=== PATIENT | female | born 1995 | race Asian ===

== ENCOUNTER 2021-08-07 21:09 | Emergency (ER) | payer SELFPAY ==
[2021-08-07] MEDS ORDERED: DIAZEPAM 10 MG/2 ML INJ SYRINGE ONE (22:00)
[2021-08-07] MEDS ORDERED: ONDANSETRON 4 MG/2 ML VIAL ONE (22:00)
[2021-08-07 22:07] LABS: Absolute Lymphocytes (CBC) 3.6 K/uL (0.7-4.9); Hematocrit 36.1 % (36.0-45.0); Lymphocytes % 23.3 % (15.3-44.8); MPV 8.1 fL (7.6-11.3); RBC Red Blood Cell Count 4.86 M/uL (3.86-4.86)
[2021-08-07 22:26] LABS: Potassium 3.7 mmol/L (3.5-5.1); Troponin High Sensitivity 3.4 pg/mL (<58.9)
[2021-08-07 22:42] LABS: Urine Blood Negative (Negative); Urine Glucose Negative (Negative); Urine Protein Negative (Negative); Urine Specific Gravity 1.015 (1.005-1.030); Urine pH 5.5 (5.0-7.0)
[2021-08-07 22:59] LABS: Urine Specific Gravity/Preg 1.015 (1.005-1.030)
--- NOTE | 2021-08-07 23:27 | RAD REPORT ---
EXAM DESCRIPTION: CT - Head Brain Wo Cont - 08/07/2021 11:20 pm CLINICAL HISTORY: Dizziness COMPARISON: <Comparisons> TECHNIQUE: All CT scans are performed using dose optimization technique as appropriate and may inclu de automated exposure control or mA/KV adjustment according to patient size. FINDINGS: No intracranial hemorrhage, hydrocephalus or extra-axial fluid collection.No areas of brai n edema or evidence of midline shift. The paranasal sinuses and mastoids are clear. The calvarium is intact. IMPRESSION: No acute intracranial abnormality.
--- NOTE | 2021-08-08 00:30 | ER ---
Nurse's Notes [facility] Name: Talib Covarrubias Age: 26 yrs Sex: Female : 1995 Arrival Date: 08/07/2021 Time: 21:14 Bed 15 Private MD: Diagnosis: Vertigo Presentation: 08/07 21:26 Chief complaint: Parent and/or Guardian states: "She has been having dizzy and about tw5 two or three times she felt like she was going to fall down from the dizziness.". Coronavirus screen: Vaccine status: Patient reports receiving the 2nd dose of the covid vaccine. [employer]. Ebola Screen: Patient negative for fever greater than or equal to 101.5 degrees Fahrenheit, and additional compatible Ebola Virus Disease symptoms Patient denies exposure to infectious person. Patient denies travel to an Ebola-affected area in the 21 days before illness onset. Initial Sepsis Screen: Does the patient meet any 2 criteria? No. Patient's initial sepsis screen is negative. Does the patient have a suspected source of infection? No. Patient's initial sepsis screen is negative. Risk Assessment: Do you want to hurt yourself or someone else? Patient reports no desire to harm self or others. Onset of symptoms was August 06, 2021. 21:26 Method Of Arrival: Ambulatory tw5 21:26 Acuity: LUIS MANUEL 3 tw5 Triage Assessment: 21:27 General: Appears in no apparent distress. Behavior is calm, cooperative, appropriate tw5 for age. Pain: Complains of pain in abdomen Pain currently is 8 out of 10 on a pain scale. 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 - Social history:: Smoking status: Patient denies any tobacco usage or history of. Screenin:35 Abuse screen: Denies threats or abuse. Nutritional screening: No deficits noted. ll3 Tuberculosis screening: No symptoms or risk factors identified. Fall Risk No fall in past 12 months (0 pts). No secondary diagnosis (0 pts). IV access (20 points). Ambulatory Aid- None/Bed Rest/Nurse Assist (0 pts). Gait- Normal/Bed Rest/Wheelchair (0 pts) Mental Status- Oriented to own ability (0 pts). Total Curry Fall Scale indicates No Risk (0-24 pts). Assessment: 21:30 General: Appears uncomfortable, Behavior is calm, cooperative. Pain: Complains of pain ll3 in abdomen Pain currently is 8 out of 10 on a pain scale. Neuro: Level of Consciousness is awake, alert, obeys commands, Oriented to person, place, time, situation. GI: Abdomen is round non-distended, Reports lower abdominal pain, upper abdominal pain. Derm: Skin is pink, warm \\T\\ dry. 23:00 Reassessment: No changes from previously documented assessment. Patient and/or family ll3 updated on plan of care and expected duration. Pain level reassessed. Patient is alert, oriented x 3, equal unlabored respirations, skin warm/dry/pink. 08/08 00:55 Reassessment: No changes from previously documented assessment. Patient and/or family ll3 updated on plan of care and expected duration. Pain level reassessed. Patient is alert, oriented x 3, equal unlabored respirations, skin warm/dry/pink. Vital Signs: 08/07 21:24 BP 118 / 88; Pulse 99; Resp 18; Temp 98.7; Pulse Ox 100% on R/A; Weight 75 kg; Height 5 tw5 ft. 0 in. (152.40 cm); Pain 8/10; 23:35 BP 116 / 77; Pulse 91; Resp 20; Pulse Ox 100% on R/A; ll3 18 00:55 BP 110 / 97; Pulse 93; Resp 20; Pulse Ox 100% on R/A; ll3 08/07 21:24 Body Mass Index 32.29 (75.00 kg, 152.40 cm) tw5 ED Course: 08/07 21:14 Patient arrived in ED. as 21:19 Richard Infante PA is PHCP. jmm 21:19 Theodore Jenkins MD is Attending Physician. jmm 21:24 Arm band placed on. tw5 21:27 Triage completed. tw5 21:43 Hanane Gold, LACEY is Primary Nurse. ll3 21:58 Inserted saline lock: 20 gauge in left antecubital area, using aseptic technique. Blood bh1 collected. 23:22 CT Head Brain wo Cont In Process Unspecified. EDMS 23:35 Patient has correct armband on for positive identification. Bed in low position. Call ll3 light in reach. Side rails up X 1. 08/08 00:56 No provider procedures requiring assistance completed. IV discontinued, intact, ll3 bleeding controlled, No redness/swelling at site. Pressure dressing applied. Administered Medications: 08/07 22:50 Drug: Zofran (Ondansetron) 4 mg Route: IVP; Site: left antecubital; ll3 08/08 00:57 Follow up: Response: No adverse reaction ll3 08/07 22:58 Drug: Valium (diazepam) 2 mg Route: IVP; Site: left antecubital; ll3 08/08 00:57 Follow up: Response: No adverse reaction ll3 Medication: 08/07 23:35 VIS not applicable for this client. ll3 Outcome: 08/08 00:30 Discharge ordered by . evelia 00:56 Discharged to home ambulatory, with family. ll3 00:56 Condition: stable 00:56 Discharge instructions given to patient, family, Instructed on discharge instructions, follow up and referral plans. medication usage, Demonstrated understanding of instructions, follow-up care, medications, Prescriptions given X 2. 00:57 Patient left the ED. ll3 Signatures: Dispatcher [employer] EDMS Richard Infante PA PA jmm Martinez, Amelia as Wood, Tiffany tw5 Hanane Gold RN RN 3 Isidra Isaac RN RN 1 Corrections: (The following items were deleted from the chart) 00:57 00:56 Discharge instructions given to patient, family, Instructed on discharge ll3 instructions, follow up and referral plans. medication usage, Demonstrated understanding of instructions, follow-up care, medications, Prescriptions given X 3, ll3
--- NOTE | 2021-08-08 00:31 | EDPHYS ---
Physician Documentation [facility] Name: Talib Covarrubias Age: 26 yrs Sex: Female : 1995 Arrival Date: 08/07/2021 Time: 21:14 Bed 15 Private MD: ED Physician Theodore Jenkins HPI: 08/07 21:38 This 26 yrs old Female presents to ER via Ambulatory with complaints of Vertigo. [facility] 21:38 The patient presents with dizziness. Is a 26-year-old female the presents emerged [facility] department with complaints of acute onset dizziness symptoms began earlier today. Describes the sensation as the room spinning. Also complains of nausea and vomiting. Patient has had this occur 2 or approximately 2-3 other times. Attributes to previous episodes of vertigo. Denies chest pain or shortness of breath.. [employer]: 21:24 LMP 07/29/2021 tw5 Historical: - Allergies: 21:27 No Known Allergies; tw5 - Immunization history:: Flu vaccine is not up to date. - Social history:: Smoking status: Patient denies any tobacco usage or history of. ROS: 21:38 Constitutional: Negative for fever, chills, and weight loss, Cardiovascular: Negative [facility] for chest pain, palpitations, and edema, Respiratory: Negative for shortness of breath, cough, wheezing, and pleuritic chest pain. 21:38 Neuro: Positive for dizziness. 21:38 All other systems are negative. Exam: 21:38 Constitutional: This is a well developed, well nourished patient who is awake, alert, [facility] and in no acute distress. Head/Face: atraumatic. 21:38 ENT: Moist Mucus Membranes Neck: Trachea midline, Supple Chest/axilla: Normal chest wall appearance and motion. Cardiovascular: Regular rate and rhythm. No edema appreciated Respiratory: Normal respirations, no respiratory distress appreciated Abdomen/GI: Non distended, soft Back: Normal ROM Skin: General appearance color normal MS/ Extremity: Moves all extremities, no obvious deformities appreciated, no edema noted to the lower extremities 21:38 Eyes: Nystagmus: nystagmus with fast component noted, bilaterally. 21:38 Neuro: Orientation: is normal, Mentation: is normal, Memory: is normal. 21:38 Psych: Behavior/mood is pleasant, cooperative. Vital Signs: 21:24 BP 118 / 88; Pulse 99; Resp 18; Temp 98.7; Pulse Ox 100% on R/A; Weight 75 kg; Height 5 tw5 ft. 0 in. (152.40 cm); Pain 8/10; 23:35 BP 116 / 77; Pulse 91; Resp 20; Pulse Ox 100% on R/A; ll3 08/08 00:55 BP 110 / 97; Pulse 93; Resp 20; Pulse Ox 100% on R/A; ll3 08/07 21:24 Body Mass Index 32.29 (75.00 kg, 152.40 cm) tw5 MDM: 08/07 21:38 Patient medically screened. [facility] 08/08 00:28 Data reviewed: vital signs, nurses notes. Counseling: I had a detailed discussion with mervin the patient and/or guardian regarding: the historical points, exam findings, and any diagnostic results supporting the discharge/admit diagnosis, lab results, radiology results, the need for outpatient follow up, to return to the emergency department if symptoms worsen or persist or if there are any questions or concerns that arise at home. ED course: Patient is alert nontoxic in appearance in the ED. Symptoms have resolved in the ED. Patient states feeling much better. Do not currently currently suspect a central cause of vertigo. Cerebellar exam was normal. Patient advised follow-up PCP otherwise given strict return precautions. Patient understood and agrees plan of care.. 08/07 22:05 Order name: Basic Metabolic Panel; Complete Time: 22:46 [facility] 08/07 22:05 Order name: Troponin High Sensitivity; Complete Time: 22:46 [facility] 08/07 22:05 Order name: CBC with Automated Diff; Complete Time: 22:13 [facility] 08/07 21:40 Order name: EKG; Complete Time: 22:44 [facility] 08/07 21:40 Order name: Cardiac monitoring; Complete Time: 22:50 [facility] 08/07 21:40 Order name: EKG - Nurse/Tech; Complete Time: 22:50 [facility] 08/07 21:49 Order name: CT Head Brain wo Cont; Complete Time: 23:33 [facility] 08/07 22:42 Order name: Urine Dipstick-Ancillary; Complete Time: 22:46 [facility] 08/07 22:52 Order name: Urine --Ancillary (enter results); Complete Time: 23:13 [facility] 08/07 21:40 Order name: IV Saline Lock; Complete Time: 21:58 [facility] 08/07 21:40 Order name: Labs collected and sent; Complete Time: 21:58 [facility] 08/07 21:40 Order name: O2 Per Protocol; Complete Time: 22:50 [facility] 08/07 21:40 Order name: O2 Sat Monitoring; Complete Time: 22:50 [facility] 08/07 21:41 Order name: Urine Dipstick-Ancillary (obtain specimen); Complete Time: 22:50 [facility] 08/07 21:41 Order name: Urine Test (obtain specimen); Complete Time: 22:50 [facility] Administered Medications: 08/07 22:50 Drug: Zofran (Ondansetron) 4 mg Route: IVP; Site: left antecubital; 3 08/08 00:57 Follow up: Response: No adverse reaction 3 08/07 22:58 Drug: Valium (diazepam) 2 mg Route: IVP; Site: left antecubital; 3 08/08 00:57 Follow up: Response: No adverse reaction 3 Disposition: 05:28 Co-signature as Attending Physician, Theodore Jenkins MD. rn Disposition Summary: 08/08/21 00:30 Discharge Ordered Location: Home [facility] Condition: Stable [facility] Diagnosis - Vertigo [facility] Followup: [facility] - With: Private Physician - When: 2 - 3 days - Reason: Recheck today's complaints, Continuance of care, Re-evaluation by your physician Discharge Instructions: - Discharge Summary Sheet [facility] - Benign Positional Vertigo [facility] - How to Perform the Yancy Maneuver [facility] Forms: - Medication Reconciliation Form [facility] - Thank You Letter [facility] - Antibiotic Education [facility] - Prescription Opioid Use [facility] Prescriptions: - Meclizine 25 mg Oral Tablet - take 1 tablet by ORAL route every 8 hours As needed; 30 tablet; Refills: 0, [facility] Product Selection Permitted - ondansetron 4 mg Oral tablet,disintegrating - place 1 tablet by TRANSLINGUAL route every 4-6 hours; 20 tablet; Refills: 0, [facility] Product Selection Permitted Signatures: Dispatcher [employer] Richard Villanueva PA PA jmm Nieto, Roman, MD MD rn Wood, Tiffany tw5 Loubet, Lynsea, RN RN ll3 Corrections: (The following items were deleted from the chart) 08/07 23:10 22:44 CBC+H.LAB.BRZ ordered. EDMS EDMS : 22:44 BASIC METABOLIC PANEL+C.LAB.BRZ ordered. EDMS EDMS : 22:44 Troponin High Sensitivity+C.LAB.BRZ ordered. EDMS EDMS
[2021-08-08 01:13] VITALS: TEMP 98.7; O2SAT 100
[2021-08-08 01:22] VITALS: BP 110/97
--- NOTE | 2021-08-10 11:55 | EKG ---
Test Date: 2021-08-07 Test Time: 22:27:44 Sanitation Superintendent: THADDEUS MEASUREMENT RESULTS: Intervals: Rate: 86 LA: 120 QRSD: 76 QT: 356 QTc: 426 [place]: P: 65 LA: 120 QRS: 91 T: 49 INTERPRETIVE STATEMENTS: Normal sinus rhythm Rightward axis Borderline ECG No previous ECG available for comparison Electronically Signed On 08-10-21 11:50:40 CDT by Pawan Martines
--- NOTE | 2021-08-10 11:55 | EKG ---
Test Date: 2021-08-08 Test Time: 01:31:54 Php Developer: THADDEUS MEASUREMENT RESULTS: Intervals: Rate: 99 DE: 144 QRSD: 106 QT: 322 QTc: 413 [place]: P: 61 DE: 144 QRS: 31 T: 49 INTERPRETIVE STATEMENTS: Normal sinus rhythm RSR' or QR pattern in V1 suggests right ventricular conduction delay Borderline ECG Compared to ECG 08/07/2021 22:27:44 RSR' in V1 or V2 now present Right-axis deviation no longer present Electronically Signed On 08-10-21 11:50:39 CDT by Pawan Martines
== END 2021-08-08 00:57 | disposition home or self-care (01) ==
LOC: ER 21:09
DX: R42 Dizziness and giddiness (principal)
CPT/HCPCS: 36415; 70450; 80048; 81003; 81025; 84484; 85025; 93005; 96374; 96375; 99284; J2405; J3360